=== PATIENT | female | born 1950 | race Caucasian/White ===

== ENCOUNTER → 2019-02-03 | Outpatient (CLI) | payer MEDICARE, MEDICAID ==
--- NOTE | 2019-02-03 10:51 | RADIOLOGY REPORT (SQ) ---
EXAM DESCRIPTION: CT HEAD WITHOUT COMPLETED DATE/TIME: 02/03/2019 10:21 am REASON FOR STUDY: DIZZINESS AND GIDDINESS (R42) R42 DIZZINESS AND GIDDINESS COMPARISON: None. TECHNIQUE: Axial images acquired through the brain without intravenous contrast. Images reviewed wi th bone, brain and subdural windows. Additional sagittal and coronal reconstructions were generated. Images stored on PACS. All CT scanners at this facility use dose modulation, iterative reconstruction, and/or weight based d osing when appropriate to reduce radiation dose to as low as reasonably achievable (ALARA). [facility]: Dose Right [facility]: CareDose [facility]: Dose Right [facility]: Teradose 4D [facility]: Smart Everpix RADIATION DOSE: CT Rad equipment meets quality standard of care and radiation dose reduction techniq ues were employed. CTDIvol: 48.6 mGy. DLP: 979 mGy-cm. mGy. LIMITATIONS: None. FINDINGS: VENTRICLES: Prominent. CEREBRUM: No masses. No hemorrhage. No midline shift. Areas of low density in the white matter mos t likely due to chronic micro-vascular ischemic change. No evidence for acute infarction. CEREBELLUM: No masses. No hemorrhage. No alteration of density. No evidence for acute infarction. EXTRAAXIAL SPACES: Mild age-related involutional change. No fluid collections. No masses. ORBITS AND GLOBE: No intra- or extraconal masses. Normal contour of globe without masses. CALVARIUM: No fracture. PARANASAL SINUSES: No fluid or mucosal thickening. SOFT TISSUES: No mass or hematoma. OTHER: No other significant finding. IMPRESSION: MILD CHRONIC CHANGES OF ATROPHY AND MICROVASCULAR ISCHEMIA. NO ACUTE PROCESS. EVIDENCE OF ACUTE STROKE: NO. TECHNICAL DOCUMENTATION: JOB ID: [id number] Quality ID # [id number]: Final reports with documentation of one or more dose reduction techniques (e.g., Au tomated exposure control, adjustment of the mA and/or kV according to patient size, use of iterative reconstruction technique) 2010 [employer]- All Rights Reserved Reading location - IP/workstation name: [email or web address]
== END ==
LOC: RAD 10:03
PROVIDERS: ATTEND Nurse Practitioner Family
DX: R42 Dizziness and giddiness (principal)
CPT/HCPCS: 70450

== ENCOUNTER → 2019-06-19 | Outpatient (CLI) | payer MEDICARE, MEDICAID ==
--- NOTE | 2019-06-19 14:54 | RADIOLOGY REPORT (SQ) ---
EXAM DESCRIPTION: MRI ABDOMEN COMBO COMPLETED DATE/TIME: 06/19/2019 7:37 am REASON FOR STUDY: OTHER SPECIFIED DISEASES OF PANCREAS (K86.89) K86.89 OTHER SPECIFIED DISEASES OF PANCREAS COMPARISON: Low blood sugar. " "Pancreas blockage" . Possible obstruction of pancreatic duct. Hypo glycemia. History of pancreatic stent placement. Cholecystectomy. Gastric bypass. TECHNIQUE: Multiplanar multisequence imaging performed without and with contrast including sagittal, axial and coronal T2, axial T1, axial gradient fat sat T1, axial, sagittal and coronal fat sat T1 po st contrast. CONTRAST TYPE AND DOSE: 20 mL Dotarem. RENAL FUNCTION: Not indicated. ACR Type II contrast agent associated with few, if any, unconfounded cases of NSF LIMITATIONS: None. FINDINGS: LIVER: Normal size. No masses. There are dilated intrahepatic and extrahepatic biliary du cts, with common duct measuring up to 2.6 cm diameter, stable since previous examination in November 2015 . Intrahepatic ducts measure up to 5 mm diameter in the right hepatic lobe and 6 mm diameter in the left hepatic lobe, also stable. There is abrupt transition of the distal common duct near the ampull a bladder at the duodenum, similar in appearance to prior. No definite choledocholithiasis or focal obstructing mass. No abnormal biliary enhancement. SPLEEN: Normal size. No focal lesions. PANCREAS: The pancreas has normal contour. There is no pancreatic ductal dilation. No solid or cyst ic mass or abnormal pancreatic enhancement. No peripancreatic inflammation. GALLBLADDER: Post cholecystectomy. ADRENAL GLANDS: No significant masses or asymmetry. RIGHT KIDNEY AND URETER: Multiple renal cortical cysts. No hydronephrosis. No perinephric fluid. LEFT KIDNEY AND URETER: Multiple renal cortical cysts. Renal cortical scarring or persistent l obulation. No hydronephrosis. No solid enhancing mass. No perinephric fluid. Ureter has normal ca liber. AORTA AND VESSELS: No aneurysm. No dissection. Renal arteries, SMA, celiac without stenosis. RETROPERITONEUM: No retroperitoneal adenopathy, hemorrhage or masses. BOWEL: No visualized masses. No inflammation. No significant dilatation. ABDOMINAL WALL AND PERITONEUM: No free fluid in the peritoneal. No abnormal peritoneal nodularity. Postoperative changes in the ventral abdominal wall. No hernia or subcutaneous abscess or fluid. No skin thickening. BONES: No acute or significant findings. OTHER: No other significant finding. IMPRESSION: 1. Persistent chronic intrahepatic and extrahepatic biliary ductal dilation with abrupt transition of the distal common duct. No definite choledocholithiasis or obstructing mass. No associated pancrea tic ductal dilation. Finding may represent reservoir affect secondary to prior cholecystectomy, conley jb a distal biliary obstruction is not entirely excluded. Clinical correlation with patient's sympt oms and laboratory values recommended. 2. Multiple renal cortical cysts. TECHNICAL DOCUMENTATION: JOB ID: [id number] [employer]- All Rights Reserved Reading location - IP/workstation name: [email or web address]
== END ==
LOC: RAD 07:30
PROVIDERS: ATTEND Internal Medicine Endocrinology, Diabetes & Metabolism
DX: K86.89 Other specified diseases of pancreas (principal); Q61.02 Congenital multiple renal cysts
CPT/HCPCS: 74183; A9576